=== PATIENT | male | born 1970 | race Caucasian/White ===

== ENCOUNTER 2016-11-25 02:15 | Emergency (ER) | payer BC ==
[2016-11-25] MEDS ORDERED: ASPIRIN CHEW 81 MG TABLET PO STA (02:52)
[2016-11-25] MEDS ORDERED: ASPIRIN CHEW 81 MG TABLET ONE (02:53)
== END 2016-11-25 03:13 | disposition home or self-care (01) ==
DX: R07.89 Other chest pain (principal); R11.0 Nausea; I10 Essential (primary) hypertension; E78.00 Pure hypercholesterolemia, unspecified; E78.5 Hyperlipidemia, unspecified
CPT/HCPCS: 36415; 71010; 80053; 83690; 84484; 85025; 93005; 93010; 99283; 99284; A9270

== ENCOUNTER 2016-12-14 09:13 | Outpatient (CLI) | payer BC | END 2016-12-14 09:14 | disposition home or self-care (01) | DX: E78.00 Pure hypercholesterolemia, unspecified (principal) ==

== ENCOUNTER 2017-06-28 07:35 | Outpatient (CLI) | payer BC ==
[2017-06-28 12:31] LABS: CHOL/HDL RATIO 3.8 (<5.0); CHOLESTEROL 167 mg/dL; HDL CHOLESTEROL 44 mg/dL; LDL/HDL RATIO 2.4 (<3.6); TRIGLYCERIDES 86 mg/dL; VLDL CHOLESTEROL 17 mg/dL
== END 2017-06-28 07:36 | disposition home or self-care (01) ==
LOC: LAB.F 07:35
PROVIDERS: ATTEND Internal Medicine
DX: E78.00 Pure hypercholesterolemia, unspecified (principal)
CPT/HCPCS: 36415; 80061

== ENCOUNTER 2019-07-07 08:45 | Day surgery (SDC) | payer BC ==
[2019-07-07] MEDS ORDERED: DEXAMETHASONE 4 MG/ML VIAL IVP ONE (08:46)
[2019-07-07] MEDS ORDERED: KETOROLAC 30 MG/ML VIAL IVP ONE (08:46)
[2019-07-07] MEDS ORDERED: MIDAZOLAM 2 MG/2 ML VIAL IVP ONE (08:46)
[2019-07-07] MEDS ORDERED: fentaNYL 100 MCG/2 ML VIAL IVP ONE (08:46)
[2019-07-07] MEDS ORDERED: PROPOFOL 200 MG/20 ML VIAL IVP ONE (08:46)
[2019-07-07] MEDS ORDERED: LACTATED RINGERS 1,000 ML IV ONE ×2 (09:19→09:59)
[2019-07-07] MEDS ORDERED: BUPIVACAINE 0.5%-EPI 1:200000 PF 30 ML VIAL ONE (09:22)
[2019-07-07] MEDS ORDERED: LIDOCAINE 1% 50 ML MDV ONE (09:22)
[2019-07-07] MEDS ORDERED: ceFAZolin 1 GM VIAL ONE (09:24)
[2019-07-07] MEDS ORDERED: CEFAZOLIN SODIUM IN 0.9 % NACL 2 GM/100 ML BAG IV ONE (09:27)
--- NOTE | 2019-07-07 09:34 | ANESTHESIA ---
Pre-Anesthesia VS, & Labs - Diagnosis Left inguinal hernia - Procedure LIH repair Vital Signs: Temp Pulse Resp BP Pulse Ox 36.0 C L 80 18 136/82 H 96 07/07/19 09:09 07/07/19 09:09 07/07/19 09:09 07/07/19 09:09 07/07/19 09:09 Height 6 ft 1 in Weight (kg) 104.4 kg Body Mass Index 28.2 - NPO >8 hours Home Medications and Allergies Home Medications: Ambulatory Orders Atorvastatin Calcium 40 mg PO DAILY 06/29/19 Atorvastatin Calcium 40 mg PO DAILY 06/29/19 Allergies/Adverse Reactions: Allergies Allergy/AdvReac Type Severity Reaction Status Date / Time No Known Drug Allergies Allergy Verified 11/25/16 02:21 Anes History & Medical History - Anesthetic History Anesthesia Complications: reports: No previous complications Family history of Anesthesia Complications: Denies Family history of Malignant Hyperthermia: Denies - Medical History Cardiovascular: reports: High cholesterol Pulmonary: reports: None Gastrointestinal: reports: None Urinary: reports: None Neuro: reports: None Musculoskeletal: reports: None Endocrine/Autoimmune: reports: None Blood Disorders: reports: None Skin: reports: None Smoking Status: Never smoker Psychosocial: reports: No issues indicated Exam General: Alert, Oriented x3 Dental: WNL Mouth Opening: Greater than 4 Fingerbreadths Neck Mobility: Normal Mallampati classification: I Thyromental Distance: greater than 6 cm Respiratory: Lungs clear Cardiovascular: Regular rate Neurological: Normal speech Mental/Cognitive Status: Alert/Oriented X3 Cognitive Status: Within normal limits Plan Anesthesia Type: General Consent for Procedure(s) Verified and Reviewed: Yes Code Status: Attempt Resuscitation ASA classification: 1-Healthy patient Is this case an emergency?: No
[2019-07-07] MEDS ORDERED: LIDOCAINE 1% 50 ML MDV SUBQ ONE ×2 (10:30)
[2019-07-07] MEDS ORDERED: ceFAZolin 1 GM VIAL IR ONE (10:32)
[2019-07-07] MEDS ORDERED: BUPIVACAINE 0.5%-EPI 1:200000 PF 30 ML VIAL SUBQ ONE ×2 (10:32)
--- NOTE | 2019-07-07 11:35 | OPERATIVE REPORT ---
Operative Report - General Procedure Date: 07/07/19 Planned Procedure: Left Inguinal Hernia Repair Pre-Op Diagnosis: Left Inguinal Hernia Procedure Performed: Left Inguinal Hernia Repair Post Op Diagnosis: Pantaloon Left Inguinal Hernia - Procedure Note Primary Surgeon: Analisa Anesthesia Provider: XAVIER Rowland Anesthesia Technique: General LMA, Local, Regional block Pathology: None Findings: Very large pantaloon defect Complications: None apparent - Other Other Information/Narrative: After obtaining informed consent, the patient is brought to the operating room and placed in the supine position on the operating table. Following successful induction of general endotracheal anesthesia, appropriate padding of all bony prominences, and placement of appropriate monitors, the left groin was prepped and draped in the standard surgical fashion. A timeout was held per scope protocol. All elements of the surgical safety checklist were followed before, during, and after the procedure. We began the procedure by infiltrating a mixture of local anesthetics medial to the anterior superior iliac spine on the left. This was done to create an ileal inguinal nerve block. We continued by infiltrating a mixture of local anesthetics again in the left lower quadrant superior and lateral to the pubic tubercle. An incision was created here and carried down through the skin and subcutaneous tissue to reveal the fascia of the external oblique aponeurosis. It is notable that there were very few fascial fibers remaining. We could only identify the external oblique aponeurosis laterally and medially it had become extremely attenuated with the fibers clinging to the surface of the hernia sac itself. The identified fibers of the external oblique aponeurosis were reflected laterally. The spermatic cord was identified and encircled using a Lizandro drain. The hernia sac was then identified in the anterior medial position as well as the anterior lateral position. Medially there was a true hernia sac of peritoneum and laterally the floor of the inguinal canal was completely absent with portions of the sigmoid colon mesentery visible. The structures were carefully dissected free from the spermatic cord. The spermatic cord was carefully preserved.The inferior epigastric vessels were identified and divided to allow greater access to the defect. An extended portion of Prolene hernia system mesh was chosen for repair. This was dipped in Ancef containing solution and deployed into the very large defect. It was straightened and flattened in the preperitoneal space. A reema was created in the lateral spat aspect of the overlying leaflet for placement of the spermatic cord. The cord was laid in this area and the neck closed with interrupted Prolene suture. The lateral aspect of the overlying leaflet was then tucked under the remainder of the external oblique aponeurosis laterally. Medially it was sewn to Brett's ligament. We were finally able to identify a few remaining fibers of the external oblique aponeurosis medially. These were used to close this layer by attaching it to the lateral fibers we had identified in the beginning. This layer was then closed with Vicryl suture. The wound was checked for hemostasis and irrigated with warm Ancef containing solution. Once we were satisfied with our hemostasis, Rachelle's fascia was closed with Vicryl suture and Monocryl was placed in the skin. Care was taken to be sure that the testicle was distended back into the scrotum. All sponge, needle, and instrument counts were correct at the conclusion of the case. The patient was allowed to awaken from anesthesia without difficulty and taken to the post anesthesia care unit in good condition.
[2019-07-07] MEDS ORDERED: oxyCODONE 5 MG TABLET PO PRN (11:36)
[2019-07-07] MEDS ORDERED: ONDANSETRON 4 MG/2 ML VIAL IVP PRN (11:36)
[2019-07-07] MEDS ORDERED: IBUPROFEN 600 MG TABLET PO PRN (11:36)
[2019-07-07] MEDS ORDERED: ACETAMINOPHEN 325 MG TABLET PO PRN (11:36)
[2019-07-07] MEDS: HYDROmorphone 0.5 MG/0.5 ML SYRINGE ONE ×2 (11:44→11:50)
[2019-07-07] MEDS ORDERED: ACETAMINOPHEN 1,000 MG/100 ML 100 ML IV ONE (11:48)
[2019-07-07 12:46] VITALS: BP 120/88
== END 2019-07-07 08:46 | disposition home or self-care (01) ==
LOC: SDS 08:45
PROVIDERS: ATTEND Surgery
PROC: 0YU60JZ Supplement Left Inguinal Region with Synthetic Substitute, Open Approach (ICD-10-PCS; principal; 2019-07-07 10:15)
DX: K40.90 Unilateral inguinal hernia, without obstruction or gangrene, not specified as recurrent (principal); E78.00 Pure hypercholesterolemia, unspecified
CPT/HCPCS: 49505; A9270; C1713; J0131; J0690; J1170; J7120

== ENCOUNTER 2019-08-24 07:44 | Outpatient (CLI) | payer BC ==
[2019-08-24 10:57] LABS: ALBUMIN 4.3 g/dL (3.2-5.5); ALBUMIN/GLOBULIN RATIO 1.7 (1.0-2.2); ALKALINE PHOSPHATASE 48 IU/L (42-121); ALT ALANINE AMINOTRANSFERASE 47 IU/L (10-60); AST ASPARTATE AMINOTRANSFERASE 26 IU/L (10-42); BILIRUBIN,TOTAL 0.5 mg/dL (0.2-1.0); BUN - BLOOD UREA NITROGEN 17 mg/dL (6-20); CARBON DIOXIDE - CO2 28 mmol/L (21-32); CHLORIDE 107 mmol/L (101-111); CHOL/HDL RATIO 3.5 (<5.0); CHOLESTEROL 128 mg/dL; GFR - MDRD 79 (>89); GLUCOSE 100 mg/dL (70-100); HDL CHOLESTEROL 37 mg/dL; LDL CHOLESTEROL,CALCULATED 72 mg/dL; LDL/HDL RATIO 1.9 (<3.6); SODIUM 142 mmol/L (135-145); TOTAL PROTEIN 6.8 g/dL (6.7-8.2); VLDL CHOLESTEROL 19 mg/dL
== END 2019-08-24 07:45 | disposition home or self-care (01) ==
LOC: LAB.S 07:44
PROVIDERS: ATTEND Internal Medicine
DX: E78.00 Pure hypercholesterolemia, unspecified (principal)
CPT/HCPCS: 36415; 80053; 80061; 83721

== ENCOUNTER 2020-06-11 09:14 | Outpatient (CLI) | payer BC ==
[2020-06-11 13:17] LABS: BASOPHILS % (AUTO) 0.4 %; EOSINOPHILS # (AUTO) 0.2 10^3/uL (0.0-0.7); EOSINOPHILS % (AUTO) 2.6 %; HGB - HEMOGLOBIN 15.7 g/dL (14.0-18.0); LYMPHOCYTES # (AUTO) 1.9 10^3/uL (1.5-3.5); LYMPHOCYTES % (AUTO) 27.3 %; MEAN CORPUSCULAR HEMOGLOBIN 31.2 pg (27.0-31.0); MEAN CORPUSCULAR VOLUME 91.7 fL (80.0-94.0); MEAN PLATELET VOLUME 9.6 fL (7.4-11.4); MONOCYTES # (AUTO) 0.5 10^3/uL (0.0-1.0); MONOCYTES % (AUTO) 6.6 %; NEUTROPHILS # (AUTO) 4.3 10^3/uL (1.5-6.6); NEUTROPHILS % (AUTO) 62.8 %; PLT - PLATELET COUNT 306 10^3/uL (130-450); RED BLOOD COUNT 5.04 10^6/uL (4.70-6.10); RED CELL DISTRIBUTION WIDTH 12.8 % (12.0-15.0); WHITE BLOOD COUNT 6.8 x10^3/uL (4.8-10.8)
[2020-06-11 13:38] LABS: ALBUMIN 4.3 g/dL (3.2-5.5); ALBUMIN/GLOBULIN RATIO 1.7 (1.0-2.2); ALKALINE PHOSPHATASE 43 IU/L (42-121); ALT ALANINE AMINOTRANSFERASE 30 IU/L (10-60); AST ASPARTATE AMINOTRANSFERASE 19 IU/L (10-42); BILIRUBIN,TOTAL 0.7 mg/dL (0.2-1.0); BUN - BLOOD UREA NITROGEN 13 mg/dL (6-20); CALCIUM 9.3 mg/dL (8.5-10.3); CARBON DIOXIDE - CO2 30 mmol/L (21-32); CHLORIDE 107 mmol/L (101-111); CHOL/HDL RATIO 3.5 (<5.0); CHOLESTEROL 138 mg/dL; GLUCOSE 96 mg/dL (70-100); HDL CHOLESTEROL 40 mg/dL; LDL CHOLESTEROL,CALCULATED 79 mg/dL; SODIUM 142 mmol/L (135-145); TOTAL PROTEIN 6.8 g/dL (6.7-8.2); VLDL CHOLESTEROL 19 mg/dL
== END 2020-06-11 09:15 | disposition home or self-care (01) ==
LOC: LAB.S 09:14
PROVIDERS: ATTEND Physician Assistant
DX: Z00.00 Encounter for general adult medical examination without abnormal findings (principal); R53.83 Other fatigue; Z79.899 Other long term (current) drug therapy; E78.00 Pure hypercholesterolemia, unspecified
CPT/HCPCS: 36415; 80053; 80061; 83721; 84153; 84443; 85025

== ENCOUNTER 2021-04-13 07:10 | Outpatient (CLI) | payer BC ==
[2021-04-13 16:28] LABS: BASOPHILS % (AUTO) 0.3 %; EOSINOPHILS # (AUTO) 0.2 10^3/uL (0.0-0.7); EOSINOPHILS % (AUTO) 2.9 %; HCT - HEMATOCRIT 48.8 % (42.0-52.0); HGB - HEMOGLOBIN 16.1 g/dL (14.0-18.0); LYMPHOCYTES # (AUTO) 1.8 10^3/uL (1.5-3.5); LYMPHOCYTES % (AUTO) 29.2 %; MEAN CORPUSCULAR HEMOGLOBIN 30.6 pg (27.0-31.0); MEAN CORPUSCULAR VOLUME 92.8 fL (80.0-94.0); MEAN PLATELET VOLUME 9.4 fL (7.4-11.4); MONOCYTES # (AUTO) 0.6 10^3/uL (0.0-1.0); MONOCYTES % (AUTO) 8.9 %; NEUTROPHILS # (AUTO) 3.6 10^3/uL (1.5-6.6); NEUTROPHILS % (AUTO) 58.5 %; PLT - PLATELET COUNT 307 10^3/uL (130-450); RED BLOOD COUNT 5.26 10^6/uL (4.70-6.10); RED CELL DISTRIBUTION WIDTH 12.5 % (12.0-15.0); WHITE BLOOD COUNT 6.2 x10^3/uL (4.8-10.8)
[2021-04-13 16:51] LABS: ALBUMIN 4.6 g/dL (3.2-5.5); ALBUMIN/GLOBULIN RATIO 1.6 (1.0-2.2); ALKALINE PHOSPHATASE 40 IU/L (42-121); ALT ALANINE AMINOTRANSFERASE 36 IU/L (10-60); AST ASPARTATE AMINOTRANSFERASE 22 IU/L (10-42); BUN - BLOOD UREA NITROGEN 17 mg/dL (6-20); CALCIUM 9.4 mg/dL (8.5-10.3); CARBON DIOXIDE - CO2 25 mmol/L (21-32); CHLORIDE 105 mmol/L (101-111); CHOL/HDL RATIO 5.1 (<5.0); CHOLESTEROL 200 mg/dL; CREATININE 0.9 mg/dL (0.6-1.2); GFR - MDRD 89 (>89); GLUCOSE 93 mg/dL (70-100); HDL CHOLESTEROL 39 mg/dL; LDL CHOLESTEROL,CALCULATED 144 mg/dL; LDL/HDL RATIO 3.7 (<3.6); POTASSIUM 4.3 mmol/L (3.5-5.0); SODIUM 139 mmol/L (135-145); TOTAL PROTEIN 7.4 g/dL (6.7-8.2); TRIGLYCERIDES 86 mg/dL; VLDL CHOLESTEROL 17 mg/dL
[2021-04-13 17:05] LABS: THYROID STIMULATING HORMONE 3.16 uIU/mL (0.34-5.60)
== END 2021-04-13 07:11 | disposition home or self-care (01) ==
LOC: LAB.S 07:10
PROVIDERS: ATTEND Physician Assistant
DX: Z00.00 Encounter for general adult medical examination without abnormal findings (principal); Z12.5 Encounter for screening for malignant neoplasm of prostate; R20.2 Paresthesia of skin; G47.00 Insomnia, unspecified; R53.83 Other fatigue; Z79.899 Other long term (current) drug therapy; E78.00 Pure hypercholesterolemia, unspecified; F41.9 Anxiety disorder, unspecified; F32.9 Major depressive disorder, single episode, unspecified
CPT/HCPCS: 36415; 80053; 80061; 83721; 84153; 84443; 85025

== ENCOUNTER 2021-05-09 11:03 | Day surgery (SDC) | payer BC ==
[2021-05-09] MEDS ORDERED: LACTATED RINGERS 1,000 ML IV ONE ×2 (11:31→13:21)
[2021-05-09] MEDS ORDERED: fentaNYL 250 MCG/5 ML VIAL ONE (12:21)
[2021-05-09] MEDS ORDERED: MIDAZOLAM 2 MG/2 ML VIAL ONE ×2 (12:21→12:22)
[2021-05-09 13:11] VITALS: BP 107/78
== END 2021-05-09 11:04 | disposition home or self-care (01) ==
LOC: SDS 11:03
PROVIDERS: ATTEND Surgery
PROC: 0DBM8ZZ Excision of Descending Colon, Via Natural or Artificial Opening Endoscopic (ICD-10-PCS; principal; 2021-05-09 12:15)
DX: Z12.11 Encounter for screening for malignant neoplasm of colon (principal); K63.5 Polyp of colon; K57.30 Diverticulosis of large intestine without perforation or abscess without bleeding
CPT/HCPCS: 45380; J3010; J7120

== ENCOUNTER 2021-06-01 16:13 | Outpatient (CLI) | payer BC | END 2021-06-01 16:14 | disposition home or self-care (01) | LOC: COV 16:13 | PROVIDERS: ATTEND Family Medicine | DX: R05 Cough (principal); R68.83 Chills (without fever); R09.81 Nasal congestion; J34.89 Other specified disorders of nose and nasal sinuses; Z20.822 Contact with and (suspected) exposure to COVID-19 ==

== ENCOUNTER 2021-06-12 14:09 | Outpatient (CLI) | payer BC ==
[2021-06-13 08:40] VITALS: BP 110/78
--- NOTE | 2021-06-13 08:40 | SLEEP CARE CONSULTATION ---
Information from patient questionnaire entered by Tiffanie You. I have reviewed and concur with the information entered by Tiffanie You. This document represents the service I personally performed and the decisions made by me, Lara Epps MD, [facility]. History of Present Illness Service Date and Time: 06/12/2021 1409 Reason for Visit: New patient Chief Complaint: reports: Snoring, Excessive daytime sleepiness Date of Onset: snoring always Usual bedtime: 2200 Time it takes to fall asleep: immediate Snores at night: Yes Observed to quit breathing while asleep: Yes Sleeps alone due to snoring: Yes Number of times waking at night: 2 Reasons for waking at night: reports: Other (unknown reason) Toss, Turn, or Twitch while sleeping: Yes Recalls having dreams: No Usually gets out of bed at: 0700 Feels refreshed in the morning: Yes Morning headache: No Sleepy or fatigued during the day: Yes Ever fallen asleep while driving: No Takes day naps: Yes Prior sleep studies: No Additional HPI information: I had the pleasure of seeing Mr. Chavez today regarding the possibility of him having a sleep disorder. As you know, he is a 51 year old gentleman who complains of fatigue for about 2 years. The patient tells me that he normally goes to bed around 10 pm, and it takes him approximately just a few to fall asleep. He has been told that he snores loudly and irregularly at night. He has never been observed to stop breathing in his sleep. His sleeps in a separate room. He can recall waking up on the average of 2 times during the night. Most of the time he wakes up because of no apparent reason. He has never awakened because of his own snoring, choking, or having to gasp for air. There is not a lot of tossing and turning in his sleep. No somniloquy (sleep talking) or somnambulism (sleep walking). In the morning he usually gets up out of the bed around 7 a.m. not feeling refreshed nor rested. He usually does not have a morning headache. During the day he complains of feeling fatigued. His score on [place] Sleepiness Scale is 5 out of 24. He usually does not take naps during the day. 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 Patient is and lives in [place] . Have you smoked in the past 12 months: No Alcohol use: No Caffeine use: Yes Allergies and Home Medications Drug allergies reviewed: Yes Home medication list reviewed: Yes Review of Systems Cardiovascular: denies: high blood pressure, palpitations, chest pain, irregular heart rate or pulse, leg or foot swelling, have to sleep sitting up, other Respiratory: denies: shortness of breath, wheeze, sputum production, chronic cough, other Physical Exam Blood Pressure: 110/78 Heart Rate: 78 O2 Saturation: 94 Height: 6 ft 1 in Weight: 226 lb Body Mass Index: 29.8 BMI Classification: Overweight Neck circumference: 16.5 Impression and Plan IMPRESSION: 1. Obstructive Sleep Apnea-Hypopnea Syndrome, as suggested by h istory of loud and irregular snoring, observed cessation of breath while asleep, unrefreshed sleep, and persistent fatigue. Narrow oropharynx and obesity are common predisposing factors for obstructive sleep apnea-hypopnea syndrome. I recommend proceeding to polysomnography to confirm the diagnosis and to assess severity. However, because her insurance is [employer] which generally does not authorize the standard in-laboratory polysomnography, a home sleep apnea test (HSAT) will be ordered.. Plan: 1. Schedule a home sleep apnea test (HSAT) 2. Avoid long distance driving or when feeling sleepy. 3. Avoid alcohol, sedative and muscle relaxant around bedtime. 4. Return for follow up after the test. Visit Type: In Office Time Spent with Patient (minutes): 15 Provider Statement: I spent 100% of the Face to Face Visit with the patient with greater than 50% spent counseling the patient and coordination of care.
== END 2021-06-12 14:10 | disposition home or self-care (01) ==
LOC: SC 14:09
PROVIDERS: ATTEND Internal Medicine Pulmonary Disease
DX: R06.83 Snoring (principal); R53.83 Other fatigue; R06.81 Apnea, not elsewhere classified
CPT/HCPCS: 99202; 99212

== ENCOUNTER 2021-07-20 14:51 | Outpatient (CLI) | payer BC | END 2021-07-20 14:52 | disposition home or self-care (01) | LOC: SC 14:51 | PROVIDERS: ATTEND Nurse Practitioner Family | DX: G47.33 Obstructive sleep apnea (adult) (pediatric) (principal); R09.02 Hypoxemia | CPT/HCPCS: 95806 ==

== ENCOUNTER 2021-08-17 13:58 | Outpatient (CLI) | payer BC ==
[2021-08-17 14:30] VITALS: BP 105/77
--- NOTE | 2021-08-17 14:30 | SLEEP CARE CONSULTATION ---
Information from patient questionnaire entered by Paul Serra MA. I have reviewed and concur with the information entered by Paul Serra MA. This document represents the service I personally performed and the decisions made by , Elva West ARNP. History of Present Illness Service Date and Time: 08/17/2021 1227 Initial [place] Sleepiness Scale score: 5 (in 2020) Current [place] Sleepiness Scale score: 0 Additional HPI information: MELVINA FRANCO returns for follow up and results of the recently performed home sleep study. I explained the pathophysiology behind obstructive sleep apnea. We then spent quite a bit of time discussing different treatment options. For mild obstructive sleep apnea, surgery and oral appliance are alternatives to nasal CPAP therapy but in moderate or severe cases, nasal CPAP is the most effective and reliable treatment. I reviewed the impact of weight changes on sleep apnea and strongly recommended losing weight. After some discussion, the patient opted to go with the nasal CPAP therapy. Nasal autoCPAP set at 4-15 cmH20 will be ordered with rationale explained. A manual titration study will be ordered if unable to find optimal pressure with office adjustments. I explained how CPAP machine works with sample device ResMed [id number] and what to expect when using the machine. Using CPAP every night in order to get used to it was emphasized. Patient advised to put CPAP mask on before getting into bed so as not to fall asleep without CPAP. To assist acclimation to CPAP use, it could also be used for a short time during day while reading or watching TV. The patient was instructed to call the CPAP supplier to discuss any mechanical problem that may occur. If the mask given is uncomfortable or is difficult to keep on through the night even with adjustment, contact the CPAP supplier as many will replace with another mask style if notified before 30 days. If snoring or perceives is not getting enough air or too much air from the machine, notify this office. [facility] patient education PAP tips and Non Pap treatment pamphlets reviewed and given to patient. Patient was cautioned about risks of drowsy driving until sleepiness symptoms resolve. Sleep Study - Results Prior sleep studies: No Polysomnography/Home Sleep Study results: Physician Impression: The quality of the study is good. The length of the study is adequate (> 240 minutes). Please also see the tabulated and graphic data. 1. Obstructive Sleep Apnea-Hypopnea (ICD-10 G47.33), moderate, with an AHI of 21.5/hr and niki SaO2 of 74%. During the study, the patient had 83 apneas (83 obstructive, 0 central, 0 mixed) and 94 hypopneas. The longest episode lasted 82.0 seconds. The patient did not sleep supine during this study (supine AHI was 0, and non-supine, 21.51). 2. Hypoxemia (ICD-10 R09.02), moderate, with the lowest oxygen saturation of 74 % and 39.6 minutes with SaO2 under 90%. Baseline oxygen saturation was normal (Average oxygen saturation was 92%). Allergies and Home Medications Home medication list reviewed: Yes (no changes) Review of Systems Review of systems same as previous: Yes (no changes) Physical Exam Vital signs obtained and entered by: DHIRAJ HERNANDEZ Blood Pressure: 105/77 Cuff size: wrist Heart Rate: 88 O2 Saturation: 97 Height: 6 ft 1 in Weight: 230 lb Body Mass Index: 30.3 BMI Classification: Obese Impression and Plan 1. Obstructive Sleep Apnea-Hypopnea Syndrome, moderate, with lowest oxygen saturation of 74%. Obviously this is the cause of the patients symptoms of unrefreshed sleep, and excessive daytime sleepiness. Positive pressure therapy could benefit his overall health and reduce cardiovascular and cerebrovascular adverse events. As mentioned above, the patient will be started on nasal autoCPAP therapy with pressure set at 4-15 cmH2O. Compliance guidelines also reviewed. A copy of compliance guidelines will be given for reference at check out. 2. Hypoxemia, moderate, with the lowest oxygen saturation of 74 % and 39.6 minutes with SaO2 under 90%. His baseline oxygen saturation was normal with an average oxygen saturation of 92%. * Nasal auto CPAP therapy, pressure at 4-15 cm H2O. * Attempt to lose weight. * Avoid alcohol consumption near bedtime. * Avoid supine sleep until using CPAP. * The patient is again cautioned about driving until sleepiness completely resolves. * Return one month after CPAP obtained. I will assess response to therapy and compliance at that time. Counseling Topics: Weight loss health impact Visit Type: In Office Time Spent with Patient (minutes): 22 Provider Statement: I spent 100% of the Face to Face Visit with the patient with greater than 50% spent counseling the patient and coordination of care.
== END 2021-08-17 13:59 | disposition home or self-care (01) ==
LOC: SC 13:58
PROVIDERS: ATTEND Nurse Practitioner Family
DX: G47.33 Obstructive sleep apnea (adult) (pediatric) (principal); E66.9 Obesity, unspecified; Z68.30 Body mass index [BMI] 30.0-30.9, adult; R09.02 Hypoxemia
CPT/HCPCS: 99212; 99213

== ENCOUNTER 2021-10-27 16:21 | Outpatient (CLI) | payer BC ==
[2021-10-27 17:05] VITALS: BP 122/88
--- NOTE | 2021-10-27 17:05 | SLEEP CARE CONSULTATION ---
Information from patient questionnaire entered by Paul Serra MA. I have reviewed and concur with the information entered by Paul Serra MA. This document represents the service I personally performed and the decisions made by , Elva West ARNP. History of Present Illness Service Date and Time: 10/27/2021 1621 Previous diagnosis: Moderate, Obstructive Sleep Apnea-Hypopnea Syndrome AHI: 21.5 (in 07/2021) Reason for follow up: first compliance Equipment type: CPAP Equipment obtained from: Other ([facility]; got inital supplies) Mask style: Nasal pillows Backup mask available: No (will keep old mask when replaced) Last cushion change: 3-4 weeks Prior sleep studies: No HPI additional information: MELVINA FRANCO was diagnosed to have mild, AHI 21.5, obstructive sleep apnea- hypopnea syndrome and returned today for CPAP therapy first compliance follow- up. Sleep Study - Results Prior sleep studies: No CPAP Compliance Data - Data Reviewed with Patient Average duration of nightly device use: 6 HOURS 17 MINUTES Compliance rate %: 80 Current pressure setting (cmH2O): 6-10 Average residual AHI: 1.9 Central apnea: .9 Obstructive apnea: .8 Average large leak: 1.9 Subjective Patient concerns: denies: aerophagia, mask discomfort, air blowing in eyes, mask leak noise, condensation in mask/hose, nasal congestion, dry mouth, nose, throat, epistaxis, other Observed to snore while using device: No Current pressure setting perceived as: comfortable On therapy, patient: reports: sleeping better, awakening more refreshed, being more awake and alert during the day, more rested overall. denies: drowsiness while driving Initial [place] Sleepiness Scale score: 5 (in 2020) Current [place] Sleepiness Scale score: 1 Allergies and Home Medications Home medication list reviewed: Yes (no changes) Allergy and home medication list: Allergies No Known Drug Allergies Allergy (Verified 11/25/16 02:21) Review of Systems Review of systems same as previous: Yes (no changes) Physical Exam Blood Pressure: 122/88 (RIGHT, PULSE 81, RESP 16) Cuff size: wrist Heart Rate: 78 O2 Saturation: 99 (CLOTH MASK) Height: 6 ft 1 in Weight: 230 lb Body Mass Index: 30.3 BMI Classification: Obese Impression and Plan 1. Obstructive Sleep Apnea-Hypopnea Syndrome, moderate, with good treatment compliance and good apnea control. On CPAP therapy, the patient has better sleep quality and is more rested overall. Melvina states when he first tried the CPAP he was feeling very short of breath and could not tolerate the CPAP on his face. He called the office and I adjusted his pressure to 6-10 cmH2O. He states that really fixed the issue and he is wearing it with good results now. The nasal pillows mask is comfortable and he has no complaints of skin irritation, nasal or oral dryness, nasal congestion or epistaxis. Patient's apnea severity and rationale for treatment to reduce apnea, improve sleep quality and reduce cardiovascular and cerebrovascular events was reviewed. Currently patients BMI is 30.3. Obesity increases the risk of apnea, CPAP pressure requirements and overall health risks especially cardiovascular and diabetes. Patient encouraged to lose weight. * Continue auto CPAP pressure at 6-10 cmH2O * Notify me if snoring with mask or feeling that the pressure is too much or too little * Attempt to lose weight * Call this office if any problems using CPAP * Return for follow up in 3 months, or sooner if concerns arise Counseling Topics: Spare mask, Weight loss health impact Visit Type: In Office Time Spent with Patient (minutes): 23 Provider Statement: I spent 100% of the Face to Face Visit with the patient with greater than 50% spent counseling the patient and coordination of care.
== END 2021-10-27 16:22 | disposition home or self-care (01) ==
LOC: SC 16:21
PROVIDERS: ATTEND Nurse Practitioner Family
DX: G47.33 Obstructive sleep apnea (adult) (pediatric) (principal); E66.9 Obesity, unspecified; Z68.30 Body mass index [BMI] 30.0-30.9, adult
CPT/HCPCS: 99212; 99213

== ENCOUNTER 2022-02-16 09:08 | Outpatient (CLI) | payer BC ==
[2022-02-16 10:06] VITALS: BP 137/67
--- NOTE | 2022-02-16 10:06 | SLEEP CARE CONSULTATION ---
Information from patient questionnaire entered by Paul Serra MA. I have reviewed and concur with the information entered by Paul Serra MA. This document represents the service I personally performed and the decisions made by , Elva West ARNP. History of Present Illness Service Date and Time: 02/16/2022 0908 Previous diagnosis: Moderate, Obstructive Sleep Apnea-Hypopnea Syndrome AHI: 21.5 (in 07/2021) Reason for follow up: other (4 MONTH F/U, RESMED, OROZCO 09-19-2021, ) Equipment type: CPAP Equipment obtained from: Other ([facility]: getting supplies as ne eded) Mask style: Nasal Mask brand: Resmed Backup mask available: Yes (other mask) Last cushion change: 3 weeks ago Prior sleep studies: No HPI additional information: MELVINA FRANCO was diagnosed to have moderate, AHI 21.5, obstructive sleep apnea-h ypopnea syndrome and returned today for CPAP therapy four month follow-up. Sleep Study - Results Prior sleep studies: No CPAP Compliance Data - Data Reviewed with Patient Average duration of nightly device use: 6 HOURS 31 MINUTES Compliance rate %: 91 (10/18/2021-02/14/2022) Current pressure setting (cmH2O): 6-10 Average residual AHI: 0.9 Central apnea: .3 Obstructive apnea: .3 Hypopnea: .2 Average large leak: 8.9 Subjective Patient concerns: denies: aerophagia, mask discomfort, air blowing in eyes, mask leak noise, condensation in mask/hose, nasal congestion, dry mouth, nose, throat, epistaxis, other Observed to snore while using device: No Current pressure setting perceived as: comfortable On therapy, patient: reports: sleeping better, awakening more refreshed, being more awake and alert during the day, more rested overall. denies: drowsiness while driving Initial [place] Sleepiness Scale score: 5 (in 2020) Current [place] Sleepiness Scale score: 1 (02/16/2022) Allergies and Home Medications Home medication list reviewed: Yes (no changes) Allergy and home medication list: Allergies No Known Drug Allergies Allergy (Verified 11/25/16 02:21) Review of Systems Review of systems same as previous: Yes (no changes) Physical Exam Vital signs obtained and entered by: DHIRAJ HERNANDEZ Blood Pressure: 137/67 (RESP 18, PULSE 62, RIGHT,) Heart Rate: 62 O2 Saturation: 98 (PAPER MASK) Height: 6 ft 1 in Weight: 225 lb (CLOTHES) Weight change since last visit: 5 lb loss Body Mass Index: 29.7 BMI Classification: Overweight Impression and Plan 1. Obstructive Sleep Apnea-Hypopnea Syndrome, moderate, with good treatment compliance and excellent apnea control. On CPAP therapy, the patient has better sleep quality and is more rested overall. Patient has little into the nasal cushion mask likes the way it works. He did try a full face mask which just did not seal well for him. He has significant improvement of his sleep apnea and feels the pressure is very comfortable. Patient's apnea severity and rationale for treatment to reduce apnea, improve sleep quality and reduce cardiovascular and cerebrovascular events was reviewed. 2. Obesity, unspecified. Patient has lost weight. Currently patients BMI is 29.7. Obesity increases the risk of apnea, CPAP pressure requirements and overall health risks especially cardiovascular and diabetes. Patient is trying to be very active and exercising daily. The patient's CPAP pressure range should accommodate some weight loss. Symptoms to report for additional pressure adjustment discussed. * Continue auto CPAP pressure at 6-10 cmH2O * Notify me if snoring with mask or feeling that the pressure is too much or too little * Continue to try to lose weight * Call this office if any problems using CPAP * Return for follow up in 6 months, or sooner if concerns arise Counseling Topics: Spare mask, Weight loss health impact Visit Type: In Office Time Spent with Patient (minutes): 20 Provider Statement: I spent 100% of the Face to Face Visit with the patient with greater than 50% spent counseling the patient and coordination of care.
== END 2022-02-16 09:09 | disposition home or self-care (01) ==
LOC: SC 09:08
PROVIDERS: ATTEND Nurse Practitioner Family
DX: G47.33 Obstructive sleep apnea (adult) (pediatric) (principal); E66.3 Overweight; Z68.29 Body mass index [BMI] 29.0-29.9, adult
CPT/HCPCS: 99212; 99213

== ENCOUNTER 2022-07-23 07:18 | Outpatient (CLI) | payer BC ==
[2022-07-23 15:07] LABS: BASOPHILS % (AUTO) 0.4 %; EOSINOPHILS # (AUTO) 0.4 10^3/uL (0.0-0.7); EOSINOPHILS % (AUTO) 5.5 %; HCT - HEMATOCRIT 47.6 % (42.0-52.0); HGB - HEMOGLOBIN 15.7 g/dL (14.0-18.0); LYMPHOCYTES # (AUTO) 2.5 10^3/uL (1.5-3.5); MEAN CORPUSCULAR HEMOGLOBIN 30.3 pg (27.0-31.0); MEAN CORPUSCULAR VOLUME 91.9 fL (80.0-94.0); MEAN PLATELET VOLUME 9.5 fL (7.4-11.4); MONOCYTES # (AUTO) 0.6 10^3/uL (0.0-1.0); MONOCYTES % (AUTO) 7.8 %; NEUTROPHILS # (AUTO) 3.6 10^3/uL (1.5-6.6); NEUTROPHILS % (AUTO) 50.2 %; PLT - PLATELET COUNT 339 10^3/uL (130-450); RED BLOOD COUNT 5.18 10^6/uL (4.70-6.10); RED CELL DISTRIBUTION WIDTH 12.9 % (12.0-15.0); WHITE BLOOD COUNT 7.1 x10^3/uL (4.8-10.8)
[2022-07-23 15:27] LABS: ALBUMIN 4.2 g/dL (3.2-5.5); ALBUMIN/GLOBULIN RATIO 1.4 (1.0-2.2); ALKALINE PHOSPHATASE 45 IU/L (42-121); ALT ALANINE AMINOTRANSFERASE 32 IU/L (10-60); AST ASPARTATE AMINOTRANSFERASE 19 IU/L (10-42); BILIRUBIN,TOTAL 0.6 mg/dL (0.2-1.0); BUN - BLOOD UREA NITROGEN 14 mg/dL (6-20); CALCIUM 9.1 mg/dL (8.5-10.3); CARBON DIOXIDE - CO2 26 mmol/L (21-32); CHLORIDE 107 mmol/L (101-111); CHOL/HDL RATIO 7.8 (<5.0); CHOLESTEROL 297 mg/dL; CREATININE 0.9 mg/dL (0.6-1.2); GFR - MDRD 88 (>89); GLUCOSE 102 mg/dL (70-100); HDL CHOLESTEROL 38 mg/dL; POTASSIUM 4.4 mmol/L (3.5-5.0); SODIUM 140 mmol/L (135-145); TOTAL PROTEIN 7.2 g/dL (6.7-8.2); TRIGLYCERIDES 429 mg/dL
[2022-07-23 15:35] LABS: THYROID STIMULATING HORMONE 3.6 uIU/mL (0.34-5.60)
[2022-07-23 17:07] LABS: LDL CHOLESTEROL,DIRECT 182 mg/dL; LDLD/HDL RATIO 4.8 (<3.6)
== END 2022-07-23 07:19 | disposition home or self-care (01) ==
LOC: LAB.S 07:18
PROVIDERS: ATTEND Registered Nurse
DX: Z13.228 Encounter for screening for other metabolic disorders (principal); Z13.220 Encounter for screening for lipoid disorders; Z12.5 Encounter for screening for malignant neoplasm of prostate; Z13.29 Encounter for screening for other suspected endocrine disorder; Z13.0 Encounter for screening for diseases of the blood and blood-forming organs and certain disorders involving the immune mechanism
CPT/HCPCS: 36415; 80053; 80061; 83721; 84153; 84443; 85025

== ENCOUNTER 2023-04-29 07:02 | Outpatient (CLI) | payer BC ==
[2023-04-29 16:02] LABS: CHOL/HDL RATIO 5.4 (<5.0); CHOLESTEROL 245 mg/dL; HDL CHOLESTEROL 45 mg/dL; LDL CHOLESTEROL,CALCULATED 173 mg/dL; LDL/HDL RATIO 3.8 (<3.6); TRIGLYCERIDES 133 mg/dL (48-352); VLDL CHOLESTEROL 27 mg/dL
== END 2023-04-29 07:03 | disposition home or self-care (01) ==
LOC: LAB.S 07:02
PROVIDERS: ATTEND Registered Nurse
DX: Z13.220 Encounter for screening for lipoid disorders (principal)
CPT/HCPCS: 36415; 80061; 83721